=== PATIENT | male | born 1955 | race Caucasian/White ===

== ENCOUNTER 2016-12-28 06:04 | Day surgery (SDC) | payer OTHER ==
[~2016-12-28] VITALS: Ht 182.9 cm; Wt 100.0 kg
--- NOTE | ~2016-12-28 | OR ---
PATIENT'S NAME: ISABEL FORBES [facility] AGE: 61 Y [address] ROOM: [place] [address] LOCATION: [facility] [place] ADMIT DATE: 12/28/2016 OR/Procedure Report DISCHARGE DATE: 12/28/2016 FAMILY PHYSICIAN: Baltazar Apodaca MD ATTENDING PHYSICIAN: Eduin Kapoor SURGEON: Eduin Kapoor MD PNEUMATIC DEICER INSPECTOR: Erika Butler PA-C. 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 POSTOPERATIVE DIAGNOSIS: Left anterior chest basal cell carcinoma with squamous cell features/inadequate surgical margins of previous resection. PROCEDURE: 1. Wide excision 13 cm x 5 cm of basal cell carcinoma left anterior chest wall, full thickness. 2. Left thigh split-thickness skin graft 11 x 8 cm. 3. Left chest wall wound closure with split-thickness skin graft. ANESTHESIA: General. ESTIMATED BLOOD LOSS: Less than 50 mL. SPECIMEN: Left chest wall full thickness of skin. INDICATION: The patient is a 61-year-old gentleman with a large basal cell of the left chest. He underwent an office procedure for initial wide excision. The wound due to tension did breakdown. The margins were not adequate per Dermatology and recommended another wide excision. Due to the large size of the wound, we discussed primary closure versus skin grafting versus rotational skin flap. The patient again agrees to go with the skin grafting route. DESCRIPTION OF PROCEDURE: After informed consent, the patient was taken to the operating room. After general endotracheal anesthesia, the patient's anterior left chest and left thigh were prepped and draped into a sterile field. Time-out performed. We identified our patient, planned procedure, and administration of preop antibiotics. We began by marking out our elliptical incisions of the previous wound in the left anterior chest. We marked a 13 cm x 5 cm wide elliptical margin with full thickness of the dermis and we did include some of the pectoralis muscle underneath the primary tumor site. The specimen was marked accordingly for orientation to the pathology. We then used electrocautery to obtain hemostasis. We had a clean wound bed. We next turned our attention toward the split-thickness skin graft harvest site of the PATIENT'S NAME: ISABEL FORBES [facility] AGE: 61 Y [address] ROOM: [address] [address] LOCATION: [facility] [place] ADMIT DATE: 12/28/2016 OR/Procedure Report DISCHARGE DATE: 12/28/2016 FAMILY PHYSICIAN: Baltazar Apodaca MD ATTENDING PHYSICIAN: Eduin Kapoor left thigh. We marked out our area. We coiled it. We used a dermatome setting at 15 and it did permit a 15 blade scalpel in between the guard and the cutting surface. We obtained an 11 cm x 3-inch harvest site. We ran it through the mesher 1:1. We then placed it up to the left chest wound. We spread it out, tacked it with several 3-0 Prolene's, and then used staple to go around the skin edge. We placed nonadherent dressing, saline soaked cotton balls, and then a bolster dressing with 2-0 Prolene's. We covered the left leg graft site with nonadherent dressing, Tegaderm. We had a correct instrument, sponge, and needle count. The patient tolerated the procedure well and transferred to recovery in stable condition. EDUIN KAPOOR MD WTS/modl /[id number] d: 01/19/17 1739 t: 02/01/17 1741, OPERATIVE SUMMARY
[~2016-12-28 06:04] MED LIST: KEFLEX500 MG PO
== END 2016-12-28 11:15 ==
LOC: GMSU 06:04 → GPOC 06:04
PROC: 0HR Skin and Breast, Replacement (ICD-10-PCS; principal; 2016-12-28)
DX: C44.519 Basal cell carcinoma of skin of other part of trunk (principal); L98.499 Non-pressure chronic ulcer of skin of other sites with unspecified severity; M79.89 Other specified soft tissue disorders; F17.210 Nicotine dependence, cigarettes, uncomplicated; E78.00 Pure hypercholesterolemia, unspecified; F17.200 Nicotine dependence, unspecified, uncomplicated; Z12.5 Encounter for screening for malignant neoplasm of prostate; Z79.899 Other long term (current) drug therapy
CPT/HCPCS: J0690; J1100; J2405